=== PATIENT | female | born 2000 | race American Indian/Alaskan Native ===

== ENCOUNTER 2021-09-14 13:49 | Emergency (ER) | payer MEDICAID ==
[~2021-09-14] VITALS: Ht 154.9 cm; Wt 59.0 kg
[2021-09-14 14:02] VITALS: TEMP 97.6
[2021-09-14 14:29] LABS: COLLECTION METHOD CLEAN CATCH
[2021-09-14 14:33] LABS: BASO % 0.5 % (0.0-2.0); EOS % 0.1 % (0.0-4.0); GRAN # 5.9 K/mm3 (1.4-6.5); HEMATOCRIT 41.9 % (35.0-45.0); HEMOGLOBIN 13.6 g/dl (12.0-15.0); LYMPH # 1.4 K/mm3 (1.2-3.4); LYMPH % 17.8 % (20.0-51.0); MEAN CELL VOLUME 92 fl (80.0-95.0); MEAN CORPUSCULAR HEMOGLOBIN 30 pg (26-32); MEAN CORPUSCULAR HGB CONC 33 g/dl (33.0-37.0); MEAN PLATELET VOLUME 10.7 fl (7.4-10.4); MONO # 0.5 K/mm3 (0.1-0.6); MONO % 6.3 % (1.7-9.3); PLATELET COUNT 235 K/mm3 (130-400); RED BLOOD COUNT 4.54 M/mm3 (4.10-5.30); REDCELL DISTRIBUTION WIDTH-CV 13.2 % (11.5-14.5)
[2021-09-14 14:41] LABS: URINE APPEARANCE Cloudy (CLEAR/HAZY); URINE COLOR Yellow (YELLOW)
[2021-09-14 14:42] LABS: PH 8 (5-8); URINE BLOOD Negative (NEGATIVE); URINE PROTEIN(semi-quant) 1+ (NEGATIVE)
[2021-09-14 14:43] LABS: URINE BILIRUBIN Negative (NEGATIVE); URINE GLUCOSE Negative (NEGATIVE); URINE KETONE Negative (NEGATIVE); URINE NITRATE Negative (NEGATIVE); URINE UROBILINOGEN Negative (NEGATIVE)
[2021-09-14 14:45] LABS: URINE LEUKOCYTE ESTERASE Negative (NEGATIVE)
[2021-09-14 14:46] LABS: AMORPHOUS CRYSTAL Present (NOT PRESENT); MUCOUS Present (NOT PRESENT)
[2021-09-14 14:50] LABS: BILIRUBIN,TOTAL 0.5 mg/dL (0.2-1.2); CALCIUM 9.1 mg/dL (8.4-10.2); CREATININE, serum 0.66 mg/dL (0.57-1.11); POTASSIUM 3.6 mmol/L (3.5-4.5); TOTAL PROTEIN 8.1 gm/dL (6.2-8.1)
[2021-09-14 17:58] VITALS: BP 120/79; PULSE 81
== END 2021-09-14 17:58 | disposition home or self-care (01) ==
LOC: COL.ER 13:49
PROVIDERS: Nurse Practitioner Primary Care
DX: R10.13 Epigastric pain (principal)
CPT/HCPCS: J1885; J2405; J7030; Q9967